=== PATIENT | male | born 1945 | race Caucasian/White ===

== ENCOUNTER 2017-12-28 14:42 | Emergency (ER) | payer MEDICARE, BC ==
[~2017-12-28] VITALS: Ht 182.9 cm; Wt 111.5 kg
[2017-12-28 15:01] VITALS: BP 125/78; PULSE 75; RESP 16; TEMP 98.7; O2SAT 98
[2017-12-28] MEDS ORDERED: DIGO0.12 PO (15:22)
[2017-12-28] MEDS ORDERED: LISI-519 PO (15:22)
[2017-12-28] MEDS ORDERED: GENTAMICIN (15:22)
[2017-12-28] MEDS ORDERED: CARV12.52 PO (15:22)
[2017-12-28] MEDS ORDERED: AMIO200T PO (15:22)
[2017-12-28] MEDS ORDERED: INSU1INJ5 SQ (15:22)
[2017-12-28] MEDS ORDERED: SIMV20TA PO (15:22)
[2017-12-28] MEDS ORDERED: APIX5TAB PO (15:22)
[2017-12-28] MEDS ORDERED: FURO1TAB60 PO ×3 (15:22→17:16)
[2017-12-28] MEDS ORDERED: JANU50TA8 PO (15:22)
[2017-12-28] MEDS ORDERED: SPIR25TA PO (15:22)
[2017-12-28 15:37] VITALS: RESP 16; O2SAT 98
[2017-12-28 15:44] LABS: AUTOMATED NEUTROPHIL # 7.5 TH/MM3 (1.8-7.7); BASOPHIL % 0.3 % (0.0-2.0); EOSINOPHIL # 0.3 TH/MM3 (0-0.4); EOSINOPHIL % 2.7 % (0.0-4.0); HEMATOCRIT 44.8 % (39.0-51.0); HEMOGLOBIN 15.2 GM/DL (13.0-17.0); LYMPH % 14.3 % (9.0-44.0); LYMPHOCYTE # 1.4 TH/MM3 (1.0-4.8); MEAN CELL VOLUME 89.3 FL (80.0-100.0); MEAN CORPUSCULAR HEMOGLOBIN 30.4 PG (27.0-34.0); MEAN PLATELET VOLUME 8.2 FL (7.0-11.0); MONO % 6.2 % (0.0-8.0); MONOCYTE # 0.6 TH/MM3 (0-0.9); NEUT % 76.5 % (16.0-70.0); PLATELET COUNT 240 TH/MM3 (150-450); RED BLOOD COUNT 5.02 MIL/MM3 (4.50-5.90); WHITE BLOOD COUNT 9.8 TH/MM3 (4.0-11.0)
--- NOTE | 2017-12-28 16:01 | RADRPT ---
EXAM DATE/TIME: 12/28/2017 15:45 [facility] COMPARISON: No previous studies available for comparison. INDICATIONS : Shortness of breath for 3 days MEDICAL HISTORY : None. SURGICAL HISTORY : None. ENCOUNTER: Initial ACUITY: 3 days PAIN SCORE: 0/10 LOCATION: Bilateral chest FINDINGS: PA and lateral views of the chest demonstrate the lungs to be symmetrically aerated without evidence of mass, infiltrate or effusion. The cardiomediastinal contours are unremarkable. Osseous structure s are intact. CONCLUSION: No acute disease. Todd Alvarez MD FACR on December 28, 2017 at 15:58 Board Certified Radiologist. This report was verified electronically.
[2017-12-28 16:16] LABS: BICARBONATE 30.4 MEQ/L (21.0-32.0); CALCIUM 9.5 MG/DL (8.5-10.1)
[2017-12-28 16:26] VITALS: BP 112/68; PULSE 78; RESP 16; O2SAT 96
[2017-12-28 16:39] LABS: CREATININE 1.7 MG/DL (0.60-1.30)
--- NOTE | 2017-12-28 17:16 | PD ---
HPI . Dyspnea Chief Complaint: Edema Time Seen by Provider: 15:16 Travel History International Travel<30 days: No Contact w/Intl Traveler<30days: No Traveled to known affect area: No History of Present Illness HPI This patient presents with chief complaint of dyspnea. Onset was 3 days ago. He states that he went to see his doctor today and that his doctor sent him here for evaluation of possible CHF, PE or DVT. 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 The patient has a history of CHF. He has chronic, intermittent peripheral edema. He states that the peripheral edema has been worse for the last couple of days as has his shortness of breath. He reports compliance with his medications. It was difficult to determine associated and modifying factors because his answers to questions were inappropriate. For example, I asked him what made his breathing worse and he states "being alive." The patient reports a previous left ankle fracture. He wears a boot every day because of this previous fracture. He does report swelling of his left ankle associated with a fracture. PFSH Past Medical History High Cholesterol: Yes Diabetes: Yes (TYPE 2) Patient Takes Glucophage: No Diminished Hearing: No Hypertension: Yes Tetanus Vaccination: < 5 Years Past Surgical History Oral Surgery: Yes (LEFT ANKLE) Social History Alcohol Use: No Tobacco Use: No Substance Use: No Allergies-Medications Reported Meds & Prescriptions Reported Meds & Active Scripts Active Reported [Gentamicin Topical] Lisinopril 5 Mg Tab 5 Mg PO DAILY Digoxin 0.125 Mg Tab 0.125 Mg PO DAILY Eliquis (Apixaban) 5 Mg Tab 5 Mg PO BID Carvedilol 12.5 Mg Tab 12.5 Mg PO BID Spironolactone 25 Mg Tab 25 Mg PO BIDPC Lasix (Furosemide) 40 Mg Tab 40 Mg PO BID Lasix (Furosemide) 40 Mg Tab 40 Mg PO DAILY Levemir Flextouch Pen Inj (Insulin Detemir) 300 unit/3 ML Pen 1 Units SQ DIRECTED Simvastatin 20 Mg Tab 20 Mg PO DAILY Janumet (Sitagliptin-Metformin) 50-1,000 Mg Tab 1 Tab PO BID Amiodarone (Amiodarone HCl) 200 Mg Tab 200 Mg PO BID Review of Systems Except as stated in HPI: all other systems reviewed are Neg Respiratory: Positive: Shortness of Breath Physical Exam Narrative GENERAL: Awake and alert and in no acute distress. SKIN: warm/dry. HEAD: Normocephalic. Atraumatic. EYES: Pupils equal and round. No scleral icterus. No injection or drainage. ENT: No nasal bleeding or discharge. Mucous membranes pink and moist. NECK: Trachea midline. Full range of motion without pain.. CARDIOVASCULAR: Regular rate and rhythm. Heart sounds are normal. RESPIRATORY: No accessory muscle use. Clear to auscultation. Breath sounds equal bilaterally. GASTROINTESTINAL: Abdomen soft. Nontender. Bowel sounds present. Nondistended. MUSCULOSKELETAL: No obvious deformities. 4+ peripheral edema. There is a very distinct sock faby on the right ankle and a boot faby on the left lower extremity. NEUROLOGICAL: Awake and alert. No obvious cranial nerve deficits. Motor grossly within normal limits. Normal speech. PSYCHIATRIC: Appropriate mood and affect; insight and judgment normal. Data Data Last Documented VS Vital Signs Date Time Temp Pulse Resp B/P (MAP) Pulse Ox O2 Delivery O2 Flow Rate FiO2 12/28/17 16:26 78 16 112/68 (83) 96 Room Air 12/28/17 15:01 98.7 Orders Orders Complete Blood Count With Diff (12/28/17 15:28) Basic Metabolic Panel (Bmp) (12/28/17 15:28) B-Type Natriuretic Peptide (12/28/17 15:28) D-Dimer (12/28/17 15:28) Iv Access Insert/Monitor (12/28/17 15:28) Electrocardiogram (12/28/17 15:28) Ecg Monitoring (12/28/17 15:28) Oximetry (12/28/17 15:28) Chest, Pa & Lat (12/28/17 15:28) Labs Laboratory Tests Test 12/28/17 15:30 White Blood Count 9.8 TH/MM3 Red Blood Count 5.02 MIL/MM3 Hemoglobin 15.2 GM/DL Hematocrit 44.8 % Mean Corpuscular Volume 89.3 FL Mean Corpuscular Hemoglobin 30.4 PG Mean Corpuscular Hemoglobin Concent 34.0 % Red Cell Distribution Width 15.0 % Platelet Count 240 TH/MM3 Mean Platelet Volume 8.2 FL Neutrophils (%) (Auto) 76.5 % Lymphocytes (%) (Auto) 14.3 % Monocytes (%) (Auto) 6.2 % Eosinophils (%) (Auto) 2.7 % Basophils (%) (Auto) 0.3 % Neutrophils # (Auto) 7.5 TH/MM3 Lymphocytes # (Auto) 1.4 TH/MM3 Monocytes # (Auto) 0.6 TH/MM3 Eosinophils # (Auto) 0.3 TH/MM3 Basophils # (Auto) 0.0 TH/MM3 CBC Comment DIFF FINAL Differential Comment D-Dimer Quantitative (PE/DVT) 0.51 MG/L FEU Blood Urea Nitrogen 28 MG/DL Creatinine 1.70 MG/DL Random Glucose 418 MG/DL Calcium Level 9.5 MG/DL Sodium Level 132 MEQ/L Potassium Level 3.9 MEQ/L Chloride Level 94 MEQ/L Carbon Dioxide Level 30.4 MEQ/L Anion Gap 8 MEQ/L Estimat Glomerular Filtration Rate 40 ML/MIN B-Type Natriuretic Peptide 395 PG/ML MDM Medical Decision Making Medical Screen Exam Complete: Yes Emergency Medical Condition: Yes Interpretation(s) EKG shows atrial fibrillation with a controlled rate at 92. No acute ischemic changes. Differential Diagnosis Differential diagnosis of dyspnea includes but is not limited to congestive heart failure, pneumonia, wheezing, pneumothorax, pulmonary embolism Narrative Course This patient presents complaining with dyspnea. His lungs are clear. His respiratory rate is 16 and his oxygen saturation is 96-98% on room air. He does have significant peripheral edema. Last Impressions Chest X-Ray 12/28/17 1528 Signed Impressions: Service Date/Time: Thursday, December 28, 2017 15:45 - CONCLUSION: No acute disease. Todd Alvarez MD FACR The chest x-ray was independently reviewed by me. CBC & BMP Diagram 12/28/17 15:30 Calcium Level 9.5 D-dimer is 0.51. BNP is 395. Based upon his examination, the most likely etiology of his dyspnea is CHF. I will not further evaluate the mildly elevated d-dimer. His respiratory rate is 16 and his sats are 96-98% on room air. Furthermore, he is on Eliquis. The likelihood of a PE is very low. He is on Lasix 40 mg twice a day as well as numerous other medications. I will increase the Lasix to 60 mg twice a day and have him follow-up with his primary care provider later in the week. I will give him a dose of IV Lasix here prior to discharge. Diagnosis Primary Impression: Congestive heart failure Qualified Codes: I50.9 - Heart failure, unspecified Additional Instructions: Follow-up with your primary care doctor later in the week. Med/Other Pt SpecificInfo: Prescription(s) given Scripts Furosemide (Lasix) 40 Mg Tab 60 MG PO BID for 5 Days, #15 TAB 0 Refills Prov: Marissa Ramirez MD 12/28/17 Disposition: 01 DISCHARGE HOME Condition: Stable Marissa Ramirez MD December 28, 2017 17:16
[2017-12-28] MEDS ORDERED: ONDANSETRON HCL 4 MG/2 ML VIAL IV PUSH ONE (17:30)
[2017-12-28] MEDS ORDERED: MORPHINE SULFATE 4 MG/ML INJ IV ONE (17:30)
[2017-12-28] MEDS ORDERED: FUROSEMIDE 100 MG/10 ML VIAL IV PUSH ONE (17:30)
[2017-12-28 17:49] VITALS: BP 98/73
--- NOTE | 2017-12-29 19:09 | EKG ---
Date Performed: 12/28/2017 Time Performed: 15:38:21 PTAGE: 72 years EKG: ATRIAL FIBRILLATION POSSIBLE ANTERIOR MYOCARDIAL INFARCTION ABNORMAL RHYTHM ECG NO PREVIOUS TRACING DOCTOR: Julien Carrillo Interpretating Date/Time 12/29/2017 19:07:25
== END 2017-12-28 18:14 | disposition home or self-care (01) ==
LOC: PHED 14:42
DX: I11.0 Hypertensive heart disease with heart failure (principal); I50.9 Heart failure, unspecified; I48.91 Unspecified atrial fibrillation; R94.31 Abnormal electrocardiogram [ECG] [EKG]; E78.00 Pure hypercholesterolemia, unspecified; E11.9 Type 2 diabetes mellitus without complications; Z79.899 Other long term (current) drug therapy
CPT/HCPCS: 71046; 80048; 83880; 85025; 85379; 93005; 96374; 96375; 99285; J1940; J2270; J2405

== ENCOUNTER 2017-12-29 11:28 | Emergency (ER) | payer MEDICARE, BC ==
[~2017-12-29] VITALS: Ht 182.9 cm; Wt 118.0 kg
[~2017-12-29 11:28] MED LIST: AMIO200T PO; APIX5TAB PO; CARV12.52 PO; DIGO0.12 PO; FURO1TAB60 PO; GENTAMICIN; INSU1INJ5 SQ; JANU50TA8 PO; LISI-519 PO; SIMV20TA PO; SPIR25TA PO
[2017-12-29 11:31] VITALS: BP 138/94; PULSE 71; RESP 18; TEMP 98.7; O2SAT 95
--- NOTE | 2017-12-29 12:21 | PD ---
HPI Chief Complaint: Musculoskeletal Complaint Time Seen by Provider: 11:49 Travel History International Travel<30 days: No Contact w/Intl Traveler<30days: No Traveled to known affect area: No History of Present Illness HPI 72-year-old male complains of pain and swelling bilateral lower extremity. Patient has history of previous left ankle fracture status post surgery. Patient states that he has chronic swelling of the left ankle since then. Patient states that he started having increase in swelling and pain bilateral extremity for the past week. Patient was seen by personal physician and was referred to ED for evaluation. Patient was seen in emergency room yesterday and had blood test done including a CBC BMP BNP and d-dimer. D-dimer was found to be mildly elevated. Patient was advised to increase his Lasix from 40 mg twice a day to 60 mg twice a day. Patient states that he has persistent pain and swelling of lower extremity despite increase in Lasix. Patient was advised by his physician to come back to the emergency room for Doppler study lower extremity rule out DVT. Patient states that he had chronically shortness of breath and is not new. Patient denies any chest pain. Patient denies any coughing congestion fever chills. Patient denies any new injury to lower extremity. PFSH Past Medical History Arthritis: Yes Heart Rhythm Problems: Yes High Cholesterol: Yes Congestive Heart Failure: Yes Coronary Artery Disease: Yes Diabetes: Yes (TYPE 2) Patient Takes Glucophage: No Diminished Hearing: No Hypertension: Yes Musculoskeletal: Yes Triglycerides - High: Yes Tetanus Vaccination: > 5 Years Influenza Vaccination: No ?: Not Past Surgical History Oral Surgery: Yes (LEFT ANKLE) Social History Alcohol Use: No Tobacco Use: No Substance Use: No Allergies-Medications (Allergen,Severity, Reaction): Coded Allergies: No Known Allergies (Unverified , 12/29/17) Reported Meds & Prescriptions Reported Meds & Active Scripts Active Lasix (Furosemide) 40 Mg Tab 60 Mg PO BID 5 Days Reported [Gentamicin Topical] Lisinopril 5 Mg Tab 5 Mg PO DAILY Digoxin 0.125 Mg Tab 0.125 Mg PO DAILY Eliquis (Apixaban) 5 Mg Tab 5 Mg PO BID Carvedilol 12.5 Mg Tab 12.5 Mg PO BID Spironolactone 25 Mg Tab 25 Mg PO BIDPC Lasix (Furosemide) 40 Mg Tab 40 Mg PO DAILY Levemir Flextouch Pen Inj (Insulin Detemir) 300 unit/3 ML Pen 1 Units SQ DIRECTED Simvastatin 20 Mg Tab 20 Mg PO DAILY Janumet (Sitagliptin-Metformin) 50-1,000 Mg Tab 1 Tab PO BID Amiodarone (Amiodarone HCl) 200 Mg Tab 200 Mg PO BID Review of Systems General / Constitutional: No: Fever Eyes: No: Visual changes HENT: No: Headaches Cardiovascular: No: Chest Pain or Discomfort Respiratory: Positive: Shortness of Breath Gastrointestinal: No: Abdominal Pain Genitourinary: No: Dysuria Musculoskeletal: Positive: Edema, Pain Skin: No Rash Neurologic: No: Weakness Psychiatric: No: Depression Endocrine: No: Polydipsia Hematologic/Lymphatic: No: Easy Bruising Physical Exam Narrative GENERAL: Well-nourished, well-developed patient. SKIN: Focused skin assessment warm/dry. HEAD: Normocephalic. EYES: No scleral icterus. No injection or drainage. NECK: Supple, trachea midline. No JVD or lymphadenopathy. CARDIOVASCULAR: Regular rate and rhythm without murmurs, gallops, or rubs. RESPIRATORY: Breath sounds equal bilaterally. No accessory muscle use. GASTROINTESTINAL: Abdomen soft, non-tender, nondistended. MUSCULOSKELETAL: +2 pitting edema lower extremity bilaterally. Mild redness lower extremity laterally. Mild tenderness on palpation. No increase in heat noted. BACK: Nontender without obvious deformity. No CVA tenderness. Neurologic exam normal. Data Data Last Documented VS Vital Signs Date Time Temp Pulse Resp B/P (MAP) Pulse Ox O2 Delivery O2 Flow Rate FiO2 12/29/17 11:31 98.7 71 18 138/94 (109) 95 Orders Orders Us Leg Venous Doppler Bilat (12/29/17 11:59) [facility] Medical Decision Making Medical Screen Exam Complete: Yes Emergency Medical Condition: Yes Medical Record Reviewed: Yes Interpretation(s) Last Impressions Lower Extremity Ultrasound 12/29/17 1159 Signed Impressions: Service Date/Time: December 12:09 - CONCLUSION: No DVT. Hitesh Le MD Lower extremity ultrasound negative for DVT. Differential Diagnosis Differential diagnosis including dependent edema, DVT, cellulitis Narrative Course 72-year-old male with increase in pain swelling bilateral lower extremity. Diagnosis Primary Impression: Dependent edema Patient Instructions: General Instructions Additional Instructions: Continue with Lasix 60 mg twice a day. Add more salt to the diet. Keep legs elevated. Follow-up with personal physician. Return if worse. Med/Other Pt SpecificInfo: No Change to Meds Disposition: 01 DISCHARGE HOME Condition: Stable Hipolito Martinez MD December 29, 2017 12:21
--- NOTE | 2017-12-29 12:36 | RADRPT ---
EXAM DATE/TIME: 12/29/2017 12:09 [facility] COMPARISON: No previous studies available for comparison. EXTERNAL COMPARISON : [facility], US LEG RIGHT VENOUS DOPPLER, October 13, 2017 INDICATIONS : Bilateral leg swelling. MEDICAL HISTORY : Congestive heart failure. Hypertension. Coronary artery disease. Hyperlipidemia. Arthritis. Diabetes . SURGICAL HISTORY : Left ankle surgery. ENCOUNTER: Initial ACUITY: 3 days PAIN SCORE: 3/10 LOCATION: Bilateral legs. TECHNIQUE: Venous ultrasound of the left and right leg was performed from the inguinal ligament to the proximal calf. Real-time, color Doppler and spectral tracing, compression and augmentation techniques were us ed. FINDINGS: RIGHT LEG: There is normal compressibility of the deep venous system from the inguinal region to the proximal ca lf. No echogenic clot is seen in the lumen of the common femoral, femoral, popliteal, and posterior tibial veins. There is a normal response of the venous system to proximal and distal augmentation an d respiration. LEFT LEG: There is normal compressibility of the deep venous system from the inguinal region to the proximal ca lf. No echogenic clot is seen in the lumen of the common femoral, femoral, popliteal, and posterior tibial veins. There is a normal response of the venous system to proximal and distal augmentation an d respiration. CONCLUSION: No DVT. Hitesh Le MD on December 29, 2017 at 12:34 Board Certified Radiologist. This report was verified electronically.
[2017-12-29 13:06] VITALS: BP 142/69; PULSE 74; RESP 16; O2SAT 96
== END 2017-12-29 13:13 | disposition home or self-care (01) ==
LOC: PHED 11:28
DX: R60.0 Localized edema (principal); R06.02 Shortness of breath; M19.90 Unspecified osteoarthritis, unspecified site; I11.0 Hypertensive heart disease with heart failure; I50.9 Heart failure, unspecified; E78.00 Pure hypercholesterolemia, unspecified; E11.9 Type 2 diabetes mellitus without complications; I25.10 Atherosclerotic heart disease of native coronary artery without angina pectoris; E78.1 Pure hyperglyceridemia
CPT/HCPCS: 93970; 99284